=== PATIENT | female | born 1955 | race Caucasian/White ===

== ENCOUNTER 2023-08-03 04:01 | Emergency (ER) | payer MEDICARE, OTHER, SELFPAY ==
[2023-08-03] VITALS (33 sets, daily range): BP systolic 95–146; BP diastolic 50–93; PULSE 86–114; RESP 14–35; TEMP 36.8; O2SAT 96–99
--- NOTE | ~2023-08-03 | XR_ITS ---
EXAMINATION: XR chest 1V portable DATE: 08/03/2023 05:04 INDICATION: Cough. TECHNIQUE: A single frontal view of the chest was obtained. COMPARISON: Chest single view 05/16/2016, thoracic spine MRI 02/29/2016 FINDINGS: There is a diffuse interstitial pattern in the lungs, consistent mild pulmonary edema. No p leural effusion or pneumothorax. Cardiomegaly is noted. There is a large hiatal hernia. IMPRESSION: 1. Mild pulmonary edema. 2. Cardiomegaly. 3. Large hiatal hernia. Reviewed, dictated and finalized at location E.
--- NOTE | ~2023-08-03 | CT_ITS ---
EXAMINATION: CT brain wo con DATE: 08/03/2023 05:05 INDICATION: Altered mental status. TECHNIQUE: Computed tomography (CT) of the head was performed without intravenous contrast. The mA wa s adjusted according to patient size. Iterative reconstruction technique was employed. The dose-lengt h product was 681.00 mGy-cm. COMPARISON: Head CT 03/14/2018 FINDINGS: There are scattered areas of low attenuation in the cerebral white matter. There is no intr acranial hemorrhage, acute infarction, or abnormal intracranial mass lesion. The ventricles are gato l in size. There are likely changes of ocular lens replacement surgeries. There is mild mucosal thick ening in the paranasal sinuses. The mastoid air cells are normal. IMPRESSION: 1. Worsened extensive nonspecific cerebral white matter disease, which likely represents chronic smal l vessel ischemic disease. Reviewed, dictated and finalized at location E. IMPRESSION: 1. Worsened extensive nonspecific cerebral white matter disease, which likely r epresents chronic small vessel ischemic disease.
--- NOTE | 2023-08-03 04:28 | ED.AMS ---
HPI - Altered Mental Status General Chief Complaint: Neuro Symptoms/Deficit <Constantin Nina DO - Last Filed: 08/03/23 07:46> Stated Complaint: confusion, <Constantin Nina DO - Last Filed: 08/03/23 07:46> Time Seen by Provider: 08/03/23 04:13 <Constantin Nina DO - Last Filed: 08/03/23 07:46> Source: patient and family () <Constantin Nina DO - Last Filed: 08/03/23 07:46> Limitations: no limitations <Constantin Nina DO - Last Filed: 08/03/23 07:46> History of Present Illness HPI narrative: Patient is a 67-year-old female present to the emergency department accompanied by her for confusion. notes that they went to bed at approximately 9 AM patient seemed to be acting well at that time however when they woke up around 3 AM patient appeared to be slightly confused. notes that the patient has a history of this in the past and she has been diagnosed with UTIs when that was going on. denies any recent injuries or recent illness. Patient has had a slight cough recently. Denies any fevers. Patient is chronically wheelchair dependent, has a history of MS, unsure as to what medications the patient takes but denies any recent changes to medications. Patient has chronic contractions of the bilateral lower extremities and this is unchanged and she also has chronic decree sensation of the right lower extremity in addition she has chronic slight weakness of the bilateral upper extremities that is unchanged per the patient. Patient denies any vision changes, sore throat, nasal congestion, chest pain, shortness of breath, abdominal pain, vomiting, diarrhea, melena, hematochezia, dysuria, hematuria, urinary frequency, urinary urgency, rash. In regard to appearing slightly confused notes that she seems more drowsy. Patient denies any dysphagia or dysphonia or dizziness. <DO Victorino Hughes Last Filed: 08/03/23 07:46> Related Data Home Medications: Home Medications Medication Instructions Recorded Confirmed dalfampridine 10 mg 10 mg PO Q12H PRN 07/05/21 09/28/22 tablet,extended release,12 hr (Ampyra) <Constantin Nina DO - Last Filed: 08/03/23 07:46> Allergies/Adverse Reactions: Allergies Allergy/AdvReac Type Severity Reaction Status Date / Time No Known Allergies Allergy Verified 07/05/23 13:35 <Constantin Nina DO - Last Filed: 08/03/23 07:46> Review of Systems Review of Systems: A 10 system review of systems was completed on the patient and is negative except for what is stated in the HPI. Nursing and ancillary documentation was reviewed. <Constantin Nina, - Last Filed: 08/03/23 07:46> PMFSH Past Medical History Medical History: Medical History History of vaginal delivery Multiple sclerosis Osteoporosis Overactive bladder <Constantin Nina DO - Last Filed: 08/03/23 07:46> Surgical History Surgical History: Surgical History History of appendectomy S/P LASIK surgery (~2013) <Constantin Nina DO - Last Filed: 08/03/23 07:46> Family History Family History: Family History Father Acute myocardial infarction Other Hypertension <Constantin Nina DO - Last Filed: 08/03/23 07:46> Social History Social History: Social History Smoking status: Never smoker Alcohol intake: never Substance use: never Substance use type: does not use Lack of Transportation: No Lack of Food: Never True Current Housing: I Have Housing Concerned About Future Housing: No Difficulty Paying Gas/Electric Bills: No Difficulty Paying for Meds: No Currently Unemployed: No Education: High School Diploma/GED Difficulty w/ Childcare or Family Care: No Living arran
[2023-08-03] MEDS: SODIUM CHLORIDE 0.9% IV 1,000 ML 999 ML IV CONT (04:41)
[2023-08-03 04:52] LABS: Basophils Percent Auto 0.2 % (0.2-1.2); Eosinophils Percent Auto 0.1 % (0-4.4); Hematocrit 41.7 % (37.0-47.0); Immature Granulocyte Absolute 0.06 K/mm3 (0.00-0.031); Immature Granulocyte Percent A 0.5 % (0-0.5); Lymphocytes Absolute Auto 2.48 K/mm3 (0.9-3.2); Lymphocytes Percent Auto 20.3 % (18.3-44.2); Mean Corpuscular HGB Conc 31.2 g/dl (32-36); Mean Corpuscular Hemoglobin 28.6 pg (26-34); Mean Corpuscular Volume 91.9 fl (80-100); Monocytes Percent Auto 8.5 % (2.6-8.5); Neutrophils Absolute Auto 8.6 K/mm3 (1.3-6.7); Neutrophils Percent Auto 70.4 % (45.5-73.1); Platelet Count Result 322 k/mm3 (150-375); Red Blood Count 4.54 M/mm3 (4.2-5.4); White Blood Count 12.2 K/mm3 (4.5-10.0)
[2023-08-03 05:04] LABS: Acetaminophen < 10 ug/mL (10-30); Ammonia < 9 umol/L (9-30); Lactic Acid Reflex 1.1 mmol/L (0.7-2.0)
[2023-08-03 05:18] LABS: Salicylate < 1.0 mg/dL (2-20)
[2023-08-03 05:22] LABS: Alanine Aminotransferase 28 U/L (6-35); Albumin Level 3.8 g/dL (3.5-5.1); Alkaline Phosphatase 72 U/L (38-126); Aspartate Amino Transferase 44 U/L (14-36); Bilirubin,Total 1.1 mg/dL (0.2-1.3); Calcium 9.7 mg/dL (8.4-10.2); Carbon Dioxide 26 mmol/L (22-30); Glucose 107 mg/dL (65-110); Magnesium 1.7 mg/dL (1.6-2.3); Potassium 3.9 mmol/L (3.4-5.0); Sodium 136 mmol/L (137-145); Troponin I 0.731 ng/mL (0.000-0.034)
--- NOTE | 2023-08-03 05:23 | ECG_ITS ---
Measurements Intervals [place] Rate: 94 P: 3 RI: 133 QRS: 24 QRSD: 86 T: 51 QT: 365 QTc: 458 Interpretive Statements POOR DATA QUALITY SINUS RHYTHM NONSPECIFIC T-WAVE ABNORMALITY ABNORMAL ECG NO PREVIOUS ECG AVAILABLE FOR COMPARISON Electronically Signed On 08-03-2023 7:38:12 CDT by Nino Feldman M.D.
[2023-08-03 05:29] LABS: Influenza A QL RT-PCR Negative (Negative); Influenza B QL RT-PCR Negative (Negative); SARS-CoV-2 RNA PCR Negative (Negative)
[2023-08-03 05:31] LABS: Anion Gap 9 mmol/L (8-16); Blood Urea Nitrogen 14 mg/dL (7-17); Chloride 101 mmol/L (98-107); Estimated CRCL calculation 67 ml/min; Estimated Glomerular Filt Rate > 60
[2023-08-03] MEDS: ASPIRIN 325 MG TABLET PO (05:50)
[2023-08-03 05:55] LABS: Appearance Urine Turbid (Clear); Bacteria Urine 4+ /hpf; Bilirubin Urine Negative (Negative); Blood Urine 2+ (Negative); Color Urine Yellow (Yellow); Glucose Urine UA Negative (Negative); Ketones Urine 1+ mg/dL (Negative); Leukocyte Esterase Ur 3+ LEU/UL (Negative); Need Manual Microscopic Reviewed; Nitrate Urine Negative (Negative); Protein Urine 2+ mg/dL (Negative); RBC Urine 21-50 /hpf (0-2); Specific Grav Ur 1.017 (1.001-1.035); Squamous Epithelial Cell Urine None seen /hpf (Few); WBC Urine >100 /hpf; pH Urine 7.5 (5.0-9.0)
[2023-08-03 06:23] LABS: Add Urine Microscopic? YES
[2023-08-03 06:36] LABS: NT Pro B Type Natriuretic Pept 5900 pg/mL (19.9-100)
[2023-08-03 08:25] LABS: Troponin I 0.569 ng/mL (0.000-0.034)
== END 2023-08-03 09:09 | disposition home or self-care (01) ==
PROVIDERS: Student in an Organized Health Care Education/Training Program; Emergency Provider Preventive Medicine Aerospace Medicine; PCP Physician Assistant
DX: N39.0 Urinary tract infection, site not specified (principal); R79.89 Other specified abnormal findings of blood chemistry; J81.0 Acute pulmonary edema; Z20.822 Contact with and (suspected) exposure to COVID-19; Z79.899 Other long term (current) drug therapy
CPT/HCPCS: 36415; 70450; 71045; 80053; 80307; 81001; 82140; 83605; 83735; 83880; 84443; 84484; 85025; 87086; 87088; 87636; 93005; 96361; 96365; 99284; A9270; J0696; J7030

== ENCOUNTER 2024-06-18 11:55 | Outpatient (CLI) | payer MEDICARE, OTHER, SELFPAY ==
--- NOTE | ~2024-06-18 | MR_ITS ---
EXAMINATION: MR thoracic spine wo/w con DATE: 06/18/2024 14:17 INDICATION: Multiple sclerosis. TECHNIQUE: Magnetic resonance imaging (MRI) of the thoracic spine was performed without and with 12 m L MultiHance intravenous contrast. COMPARISON: None FINDINGS: There is 6 degrees dextrocurvature of thoracic spine. There is kyphosis of thoracic spine. There is mild chronic height loss of T3, T4, T6, T7, T8, and T11 vertebral bodies. There is a chronic burst fracture of T12 with 4/5 loss of height and retropulsion of bone 2 mm into central spinal moni l. At T10-T11, the disc is bulging with mild central canal stenosis. At T11-T12, there is a central e xtrusion with mild central canal stenosis. At T12-L1, the disc is bulging with mild central canal pancho nosis. There is multilevel mild facet joint osteoarthritis. There is mild left neural foraminal steno sis at T11-T12 and mild bilateral neural foraminal stenosis at T12-L1. There are multiple areas of il l-defined increased T2-weighted signal intensity in the thoracic spinal cord. No abnormal contrast en hancement. IMPRESSION: 1. Stable thoracic spinal cord lesions, consistent with multiple sclerosis. 2. Mild thoracic spondylosis. Reviewed, dictated and finalized at location A.
--- NOTE | ~2024-06-18 | MR_ITS ---
EXAMINATION: MR brain/brain stem wo/w con DATE: 06/18/2024 14:17 INDICATION: Multiple sclerosis. TECHNIQUE: Magnetic resonance imaging (MRI) of the brain and brainstem was performed without and with 12 mL MultiHance intravenous contrast. COMPARISON: Brain MRI 02/28/2016 FINDINGS: There is no intracranial hemorrhage, acute infarction, or abnormal intracranial mass lesion . There is an old lacunar infarct in the left basal ganglia. There is extensive increased T2-weighted signal intensity in the cerebral white matter with a confluent periventricular predominance. There i s also involvement of the juxtacortical regions and cerebellar white matter. No abnormal contrast enh ancement. The ventricles are normal in size. There are likely changes of ocular lens replacement surg eries. The paranasal sinuses are clear. The mastoid air cells are normal. IMPRESSION: 1. Old lacunar infarct in the left basal ganglia. 2. Extensive cerebral and cerebellar white matter disease, unchanged from 02/28/2016, likely a combina tion of multiple sclerosis and chronic small vessel ischemic disease. Reviewed, dictated and finalized at location A. IMPRESSION: 1. Old lacunar infarct in the left basal ganglia. 2. Extensive cerebral and cerebellar white matter disease, unchanged from 2015, likely a combination of multiple sclerosis and chronic small vessel ische joe disease.
--- NOTE | ~2024-06-18 | MR_ITS ---
EXAMINATION: MR cervical spine wo/w con DATE: 06/18/2024 14:17 INDICATION: Multiple sclerosis. TECHNIQUE: Magnetic resonance imaging (MRI) of the cervical spine was performed without and with 12 m L MultiHance intravenous contrast. COMPARISON: Cervical spine MRI 02/29/2016 FINDINGS: There is dextroscoliosis of thoracic spine. In the cervical spine, vertebral body heights a re normal. There is mildly decreased disc height at C5-C6. There is ill-defined patchy increased T2-w eighted signal intensity in the cervical spinal cord. No abnormal contrast enhancement. The following disc levels are specifically discussed: C2-C3: The disc does not extend beyond the endplate margin. There is no uncovertebral joint osteoarth ritis. There is severe left facet joint osteoarthritis. There is ankylosis of right facet joint with moderate hypertrophy. There is no neural foraminal stenosis. There is no central canal stenosis. C3-C4: There is a central extrusion. There is mild left uncovertebral joint osteoarthritis. There is severe bilateral facet joint osteoarthritis. There is mild left neural foraminal stenosis. There is m ild central canal stenosis. C4-C5: There is a central protrusion. There is no uncovertebral joint osteoarthritis. There is severe bilateral facet joint osteoarthritis. There is mild bilateral neural foraminal stenosis. There is mi ld central canal stenosis. C5-C6: There is a central extrusion. There is mild bilateral uncovertebral joint osteoarthritis. Ther e is mild bilateral facet joint osteoarthritis. There is mild right neural foraminal stenosis. There is mild central canal stenosis. C6-C7: There is a central protrusion. There is mild bilateral uncovertebral joint osteoarthritis. The re is no facet joint osteoarthritis. There is no neural foraminal stenosis. There is mild central can al stenosis. C7-T1: The disc does not extend beyond the endplate margin. There is no uncovertebral joint osteoarth ritis. There is mild bilateral facet joint osteoarthritis. There is no neural foraminal stenosis. The re is no central canal stenosis. IMPRESSION: 1. Stable widespread spinal cord lesions, consistent with multiple sclerosis. 2. Mild cervical spondylosis. Reviewed, dictated and finalized at location A.
== END 2024-06-18 11:56 | disposition home or self-care (01) ==
PROVIDERS: Visit Provider Psychiatry & Neurology Neurology
DX: G35 Multiple sclerosis (principal); M47.894 Other spondylosis, thoracic region; M47.892 Other spondylosis, cervical region; R90.82 White matter disease, unspecified
CPT/HCPCS: 70553; 72156; 72157; A9577

== ENCOUNTER 2025-02-23 15:35 | Emergency (ER) | payer MEDICARE, OTHER, SELFPAY ==
--- NOTE | ~2025-02-23 | CT_ITS ---
EXAMINATION: CT brain wo con DATE: 02/23/2025 16:50 INDICATION: AMS . TECHNIQUE: Computed tomography (CT) of the head was performed without intravenous contrast. The mA wa s adjusted according to patient size. Iterative reconstruction technique was employed. The dose-lengt h product was 756.67 mGy-cm. COMPARISON: 08/03/2023; MR brain 06/18/2024. FINDINGS: No acute intracranial hemorrhage or extra-axial fluid collection. No hydrocephalus, mass, or herniation. No acute ischemic infarct. Unremarkable dural venous sinus attenuation. No acute osseous abnormality. Small retention cyst/polyp in the left maxillary sinus, the remaining aerated spaces are clear. Moderate atrophy and severe chronic white matter change. Atherosclerotic intracranial calcification. Bilateral lens replacements. IMPRESSION: No acute intracranial process. Reviewed, dictated and finalized at location K.
--- OUTSIDE RECORDS SUMMARY | 2025-02-23 15:41 | XMS_ITS | Clinical Summary ---
Author Organization [facility] [address] Address [address] [place] [address] Care Team Providers Care Take Up Supervisor Name Role Phone Unknown, Notinfile Primary Care Provider Unavail able Allergies No known active allergies Medications baclofen (LIORESAL) 10 mg tablet Take 1 tablet (10 mg total) by mouth 12/25/2024 Active FLUoxetine (PROzac) 20 mg capsule Take 1 capsule (20 mg total) by mouth daily 10/23/2024 Active oxyBUTYnin XL (DITROPAN XL) 15 mg 24 hr tablet Take 1 tablet (15 mg total) by mouth daily 11/26/2024 Active Active Problems Problem Noted Date Diagnosed Date Hypertension 07/10/2012 Spasticity 07/10/2012 Encounters Date Type Department Care Team Description 02/23/2025 2:45 PM CDT Office Visit [facility] at [address] [phone] Anay Mistry PA Confusion (Primary Dx) 01/01/2025 Results Follow-Up [facility] [address] [phone] Kelle Spring NP Urine culture Urine, clean voided 12/29/2024 9:31 AM CDT - 12/29/2024 11:59 PM CDT Hospital Encounter [address] [address] Confusion; Cloudy urine Discharge Disposition: Discharge to home or self care 12/29/2024 8:45 AM CDT Office Visit [facility] at [address] [phone] Lina Thompson NP Confusion (Primary Dx); Cloudy urine from Last 3 Months Social History Tobacco Use Types Packs/Day Years Used Date Smoking Tobacco: Never Comments Unknown Sex and Gender Information Value Date Recorded Sex Assigned at Not on file 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 Gender Identity Not on file Sexual Orientation Not on file Obstetrics History Last Filed Vital Signs Vital Sign Reading Time Taken Comments Blood Pressure 140/70 02/23/2025 2:49 PM CDT Pulse 82 02/23/2025 2:49 PM CDT Temperature 36.7 C (98 F) 02/23/2025 2:49 PM CDT Respiratory Rate 20 02/23/2025 2:49 PM CDT Oxygen Saturation 98% 02/23/2025 2:49 PM CDT Inhaled Oxygen Concentration - - Weight 54.4 kg (120 lb) 12/29/2024 8:46 AM CDT Height 162.6 cm (5' 4 ) 12/29/2024 8:46 AM CDT Body Mass Index 20.6 12/29/2024 8:46 AM CDT Plan of Treatment Health Maintenance Due Date Last Done Comments Breast Cancer Screening-Mammogram 1955 Colon Cancer Screening-Colonoscopy 1955 Depression Screening 1955 Fall Risk Assessment 1955 Hepatitis C Screening 1955 Osteoporosis Screening-Bone Density Scan 1955 DTaP/Tdap/Td Vaccine (1 - Tdap) 1966 Hepatitis B Screening 1973 Pneumococcal vaccine 65+ (1 of 1 - PCV) 2005 Zoster Vaccine (1 of 2) 2005 Well Visit 65+ 2020 Influenza Vaccine (Season Ended) 2025 Procedures Procedure Name Priority Date/Time Associated Diagnosis Comments URINE CULTURE Routine 12/29/2024 9:31 AM CDT Confusion Cloudy urine POCT URINALYSIS DIPSTICK Routine 12/29/2024 9:29 AM CDT Confusion Cloudy urine from Last 3 Months Results * (ABNORMAL) Urine culture Urine, clean voided (12/29/2024 9:31 AM CDT) Report Final Report: Greater than or equal to 100,000 colonies/mL of Escherichia coli Plus growth of clinically insignificant bacterial shaw. (.) Comment:Testing performed by : [facility], [address] [place]., [address] Organism ESCHERICHIA COLI [facility] Organism PLUS GROWTH OF CLINICALLY INSIGNIFICANT SHAW. [facility] Urine, clean voided 12/29/2024 9:31 AM CDT 12/29/2024 7:54 PM CDT Narrative [facility] - 01/01/2025 1:59 PM CDT Testing performed by [facility] ([phone]) Organism Antibiotic Method Susceptibility Escherichia coli Ampicillin INTERPRETATION Resistant Escherichia coli Cefazolin INTERPRETATION Susceptible Escherichia coli Nitrofurantoin INTERPRETATION Susceptible Escherichia coli Gentamicin INTERPRETATION Susceptible Escherichia coli Trimethoprim with Sulfamethoxazole IN TERPRETATION Resistant Escherichia coli Meropenem INTERPRETATION Susceptible Escherichia coli Cefepime INTERPRETATION Susceptible Escherichia coli Ciprofloxacin INTERPRETATION Susceptible Escherichia coli Ceftazidime INTERPRETATION Susceptible Escherichia coli Ceftriaxone INTERPRETATION Susceptible Escherichia coli Piperacillin/Tazobactam INTERPRETATIO N Susceptible Escherichia coli Cephalexin INTERPRETATION Susceptible Escherichia coli Cefuroxime-axetil INTERPRETATION Susceptible Escherichia coli Cefdinir INTERPRETATION Susceptible Lina Thompson NP LAB MICROBIOLOGY - GENERAL ORDERABLES Final Result [facility] [id number] [place] [address] * (ABNORMAL) POCT urinalysis dipstick (12/29/2024 9:29 AM CDT) Color, Urine, POC Yellow Clarity, ur, POC Cloudy(A) Clear Glucose, ur, POC Negative Negative MG/DL Bilirubin, ur, POC Small Negative, Small, Moderate, Large Ketones, ur, POC Negative Negative Specific [place], POC 1.015 1.003 - 1.030 Blood, ur, POC Moderate(A) Negative pH, ur, POC 8.0 5.0 - 8.0 Protein, ur, POC 30.(A) Negative Urobilinogen, urine, POC 0.2 0.2 - 1.0 mg/dL Nitrite, ur, POC Positive(A) Negative Leukocytes, ur, POC Moderate(A) Negative Lot Number [id number] Urine 12/29/2024 9:29 AM CDT Lina Thompson NP POINT OF CARE TEST ORDERAB LES Final Result from Last 3 Months Insurance [facility] MEDICARE MEDICARE Care Teams Take Up Supervisor Relationship Specialty Start Date End Date Unknown, Notinfile PCP - General 12/29/24
--- OUTSIDE RECORDS SUMMARY | 2025-02-23 15:41 | XMS_ITS | Referral Summary ---
Author Organization [facility] [place] [address] Address [address] [place] [address] Care Team Providers Care Cruise Guide Name Role Phone Unknown, Notinfile Primary Care Provider Unavail able Encounters Date Type Department Care Team Description 02/23/2025 2:45 PM CDT Office Visit [facility] at [address] [phone] Anay Mistry PA Confusion (Primary Dx) 01/01/2025 Results Follow-Up [facility] at [address] [phone] Kelle Spring NP Urine culture Urine, clean voided 12/29/2024 9:31 AM CDT - 12/29/2024 11:59 PM CDT Hospital Encounter [address] [address] Confusion; Cloudy urine Discharge Disposition: Discharge to home or self care 12/29/2024 8:45 AM CDT Office Visit [facility] at [address] [phone] Lina Thompson NP Confusion (Primary Dx); Cloudy urine from Last 3 Months Allergies No known active allergies Medications baclofen [...] Date Diagnosed Date Hypertension 07/10/2012 Spasticity 07/10/2012 Social History Tobacco Use Types Packs/Day Years Used Date Smoking Tobacco: Never Comments Unknown Sex and Gender Information Value Date Recorded Sex Assigned at Not on file 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 (.) Comment:Testing performed by : [facility], [address] [facility], [place]., [address] Organism ESCHERICHIA COLI [facility] Organism PLUS GROWTH OF CLINICALLY INSIGNIFICANT SHAW. [facility] Urine, clean voided 12/29/2024 9:31 AM CDT 12/29/2024 7:54 PM CDT Narrative [facility] - 01/01/2025 1:59 PM CDT Testing performed by [facility] ([phone]) Organism Antibiotic Method Susceptibility Escherichia coli Ampicillin [...] MICROBIOLOGY - GENERAL ORDERABLES Final Result [facility] [id number] [address] Department [place] [address] * (ABNORMAL) POCT urinalysis dipstick (12/29/2024 9:29 AM CDT) Color, Urine, POC Yellow Clarity, ur, POC Cloudy(A) Clear Glucose, ur, POC Negative Negative MG/DL Bilirubin, ur, POC Small Negative, Small, Moderate, Large Ketones, ur, POC Negative Negative Specific [place], POC 1.015 1.003 - 1.030 Blood, ur, POC Moderate(A) Negative pH, ur, POC 8.0 5.0 - 8.0 Protein, ur, POC 30.(A) Negative Urobilinogen, urine, POC 0.2 0.2 - 1.0 mg/dL Nitrite, ur, POC Positive(A) Negative Leukocytes, ur, POC Moderate(A) Negative Lot Number [id number] Urine 12/29/2024 9:29 AM CDT Lina Thompson NP POINT OF CARE TEST ORDERAB LES Final Result from Last 3 Months Insurance [facility] [employer] [place] MEDICARE Care Teams Cruise Guide Relationship Specialty Start Date End Date Unknown, Notinfile PCP - General 12/29/24
--- OUTSIDE RECORDS SUMMARY | 2025-02-23 15:41 | XMS_ITS | Encounter Summary ---
Author Organization [facility] Address [address] [place] [id number] Care Team Providers Care Fitting Room Inspector Name Role Phone Unknown, Notinfile Primary Care Provider Unavail able Reason for Visit * Reason Comments Urinary Symptom Frequency, Confusion Encounter Details Date Type Department Care Team (Late st Contact Info) Description 02/23/2025 2:45 PM CDT Office Visit [facility] at [address] [phone] Anay Mistry PA [facility] [address] [place] [address] Confusion (Primary Dx) Social History Tobacco Use Types Packs/Day Years Used Date Smoking Tobacco: Never Comments Unknown Sex and Gender Information Value Date Recorded Sex Assigned at Not on file 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 Gender Identity Not on file Sexual Orientation Not on file documented as of this encounter Last Filed Vital Signs Vital Sign Reading Time Taken Comments Blood Pressure 140/70 02/23/2025 2:49 PM CDT Pulse 82 02/23/2025 2:49 PM CDT Temperature 36.7 C (98 F) 02/23/2025 2:49 PM CDT Respiratory Rate 20 02/23/2025 2:49 PM CDT Oxygen Saturation 98% 02/23/2025 2:49 PM CDT Inhaled Oxygen Concentration - - Weight - - Height - - Body Mass Index - - documented in this encounter Plan of Treatment Not on file documented as of this encounter Visit Diagnoses Diagnosis Confusion- Primary Unspecified psychosis documented in this encounter Care Teams Fitting Room Inspector Relationship Specialty Start Date End Date Unknown, Cheo PCP - General 12/29/24 documented as of this encounter
[2025-02-23 15:55] VITALS: BP 141/73; PULSE 77; RESP 16; TEMP 36.3; O2SAT 98
--- NOTE | 2025-02-23 16:29 | ED_ITS ---
HPI - Female Genitourinary General Chief complaint: Urogenital-Female <Mary Ann De Souza PA-C - Last Filed: 02/25/25 18:01> Stated complaint: UTI symptoms-Hx MS <ANTONIO Galvan Last Filed: 02/25/25 18:01> Time Seen by Provider: 02/23/25 16:29 <ANTONIO Galvan Last Filed: 02/25/25 18:01> Focused HPI: This is a 69 year old female that presents to the ER for confusion, difficulty urinating. Ongoing since this morning. Reports significant history of UTIs. GENERAL: Well-appearing, well-nourished, and in no acute distress. HEAD: Normocephalic, atraumatic. CHEST: Clear to auscultation. No respiratory distress. HEART: Regular rate and rhythm. NEURO: Alert and oriented x3. Patient screened in triage and initial orders placed. Additional care and disposition to be based upon diagnostic testing and treatment. <Mary Ann De Souza PA-C - Last Filed: 02/25/25 18:01> Focused HPI: This is a 69 year old female that presents to the ER for confusion, difficulty urinating. Ongoing since this morning. Reports significant history of UTIs. GENERAL: Well-appearing, well-nourished, and in no acute distress. HEAD: Normocephalic, atraumatic. CHEST: Clear to auscultation. No respiratory distress. HEART: Regular rate and rhythm. NEURO: Alert and oriented x3. Patient screened in triage and initial orders placed. Additional care and disposition to be based upon diagnostic testing and treatment. <Angely Jackson PA-C - Last Filed: 02/23/25 21:36> Source: patient and family <ANTONIO Gross Last Filed: 02/23/25 21:36> Mode of arrival: ambulatory <ANTONIO Gross Last Filed: 02/23/25 21:36> Limitations: no limitations <ANTONIO Gross Last Filed: 02/23/25 21:36> History of Present Illness HPI Narrative: Agree with above HPI. Patient has history of MS. at bedside reports patient was acting slightly confused this morning, had difficulty using the TV remote, was trying to call him while he was still in the room, was opening up several different candy bars at the same time. She has history of frequent UTIs and states it often presents some early. Patient is incontinent, wears depends. She denies feeling as though she cannot empty her bladder. She denies abdominal or back pain, nausea, vomiting, fevers, hematuria. Sees Dr. Del Cid. <Angely Jackson PA-C - Last Filed: 02/23/25 21:36> Related Data Allergies/Adverse reactions: Allergies Allergy/AdvReac Type Severity Reaction Status Date / Time No Known Allergies Allergy Verified 02/23/25 15:37 <Mary Ann De Souza PA-C - Last Filed: 02/25/25 18:01> Review of Systems 2 Review of Systems: All systems reviewed & are unremarkable except as noted in HPI. <Angely Jackson PA-C - Last Filed: 02/23/25 21:36> All systems reviewed & are unremarkable except as noted in HPI and below < Angely Jackson PA-C - Last Filed: 02/23/25 21:36> [facility] Past Medical History Medical History: Medical History Carotid bruit present History of vaginal delivery Overactive bladder Osteoporosis Multiple sclerosis <Mary Ann De Souza PA-C - Last Filed: 02/25/25 18:01> Surgical History Surgical History: Surgical History S/P LASIK surgery (~2013) History of appendectomy <Mary Ann De Souza PA-C - Last Filed: 02/25/25 18:01> Family History Family History: Family History Father Acute myocardial infarction Other Hypertension <Mary Ann De Souza PA-C - Last Filed: 02/25/25 18:01> Social History Social History: Social History Smoking status: Never smoker Alcohol intake: never Substance use: never Substance use type: does not use Lack of Transportation: No Lack of Food: Never True Current Housing: I Have Housing Concerned About Future Housing: No Difficulty Paying Gas/Electric Bills: No Difficulty Paying for Meds: No Currently Unemployed: No Education: High School Diploma/GED Difficulty w/ Childcare or Family Care: No Living arrangements: with family <Mary Ann De Souza PA-C - Last Filed: 02/25/25 18:01> Exam 2 Narrative: GENERAL: Chronically ill-appearing, thin, pleasant, non-toxic, in no acute distress. HEAD: Normocephalic, atraumatic. RESPIRATORY: Airway patent, respirations nonlabored. Clear to auscultation bilaterally, no rales, rhonchi, wheezing. CARDIOVASCULAR: Regular rate and rhythm without murmurs, rubs, or gallops. ABDOMINAL: Soft, nontender, nondistended. Normoactive BS. MUSCULOSKELETAL: No gross deformities. Kyphosis, contractures. Atrophy of lower extremities bilaterally. SKIN: Warm, dry, normal color. NEURO: A&O X3. Speech clear. Cranial nerves II-XII grossly intact. No ataxic movements. PSYCHIATRIC: Appropriate mood and affect. Normal interaction. <Angely Jackson PA-C - Last Filed: 02/23/25 21:36> Course Vital Signs Vital signs: Vital Signs Temperature 97.4 F L 02/23/25 15:55 Pulse Rate 77 02/23/25 15:55 Respiratory Rate 16 02/23/25 15:55 Blood Pressure 141/73 H 02/23/25 15:55 Pulse Oximetry 98 02/23/25 15:55 Temperature 97.4 F L 02/23/25 15:55 Pulse Rate 73 02/23/25 21:00 Respiratory Rate 16 02/23/25 21:00 Blood Pressure 136/82 02/23/25 21:00 Pulse Oximetry 99 02/23/25 21:00 <Mary Ann De Souza PA-C - Last Filed: 02/25/25 18:01> Vital Signs Temperature 97.4 F L 02/23/25 15:55 Pulse Rate 77 02/23/25 15:55 Respiratory Rate 16 02/23/25 15:55 Blood Pressure 141/73 H 02/23/25 15:55 Pulse Oximetry 98 02/23/25 15:55 Temperature 97.4 F L 02/23/25 15:55 Pulse Rate 73 02/23/25 21:00 Respiratory Rate 16 02/23/25 21:00 Blood Pressure 136/82 02/23/25 21:00 Pulse Oximetry 99 02/23/25 21:00 <Angely Jackson PA-C - Last Filed: 02/23/25 21:36> MDM - Female Genitourinary MDM Narrative Medical decision making narrative: Patient presented to ED with concern for UTI, history of MS, history of frequent UTIs. Has been reported slight confusion this morning, but otherwise feels patient has been at her baseline currently. Vital signs are stable. Patient is afebrile. Laboratory studies without leukocytosis or anemia. Stable electrolytes. Stable kidney function. Normal LFTs and lipase. Urine does appear infectious, positive nitrate, 3+ leuk esterase, greater than 100 RBC/WBC, 4+ urine bacteria. Sent for culture. No previous positive cultures to view here. Given dose of Rocephin in the ED. Patient denies history of drug- resistant UTIs that she is aware of, has always tolerated oral antibiotics in the past. CT brain was obtained from triage due to acute confusion, this was negative. Discussed lab and imaging findings with patient and family. She denies any abdominal or flank/back pain, no history of kidney stones. Discussed obtaining CT imaging to rule out obstructive process or other etiology for hematuria. Patient and family politely declined. They wished to be discharged at this time. Shared decision-making. They report this is very similar to her previous UTIs and feel very comfortable going home. Advised to have close follow-up with PCP for further evaluation. Given very strict return precautions. They agreed with plan. Discharged in stable condition. <Angely Jackson PA-C - Last Filed: 02/23/25 21:36> Medical Records Attestation: I reviewed the patient's medical records. <Angely Jackson PA-C - Last Filed: 02/23/25 21:36> Lab Data Attestation: I reviewed the patient's lab results. <Angely Jackson PA-C - Last Filed: 02/23/25 21:36> Result diagrams: 02/23/25 17:08 02/23/25 17:08 <Mary Ann De Souza PA-C - Last Filed: 02/25/25 18:01> Labs: Lab Results 02/23/25 02/23/25 Range/Units 17:08 18:13 WBC 9.1 (4.5-10.0) K/mm3 RBC 4.51 (4.2-5.4) M/mm3 Hgb 12.5 (12.0-15.0) g/dL Hct 43.0 (37.0-47.0) % MCV 95.3 (80-100) fl MCH 27.7 (26-34) pg MCHC 29.1 L (32-36) g/dl RDW 13.2 (11.5-14.5) % Plt Count 384 H (150-375) k/mm3 MPV 11.0 H (7.4-10.4) fl Immature Gran % (Auto) 0.2 (0-0.5) % Neut % (Auto) 71.3 (45.5-73.1) % Lymph % (Auto) 22.1 (18.3-44.2) % [place] % (Auto) 5.0 (2.6-8.5) % Eos % (Auto) 1.1 (0-4.4) % Baso % (Auto) 0.3 (0.2-1.2) % Lymph # (Auto) 2.00 (0.9-3.2) K/mm3 [place] # (Auto) 0.5 (0.1-0.6) K/mm3 Eos # (Auto) 0.1 (0-0.3) K/mm3 Baso # (Auto) 0.0 (0.0-0.1) K/mm3 Abs Immat Gran (auto) 0.02 (0.00-0.031) K/mm3 Absolute Neuts (auto) 6.5 (1.3-6.7) K/mm3 Absolute Nucleated RBC 0.000 (0.0-0.012) K/mm3 Band Neutrophils % 0 (0-6) % Nucleated RBC % 0.0 (0.0-0.2) % Platelet Estimate Slightly increased (Adequate) Hypochromasia 1+ Schistocytes None seen Sodium 140 (137-145) mmol/L Potassium 4.1 (3.4-5.0) mmol/L Chloride 105 (98-107) mmol/L Carbon Dioxide 32 H (22-30) mmol/L Anion Gap 3 L (4-12) mmol/L BUN 14 (7-17) mg/dL Creatinine 0.86 (0.7-1.0) mg/dL Estim Creat Clear Calc 47 ml/min Estimated GFR > 60 (59 - ) Glucose 96 (65-110) mg/dL Calcium 9.1 (8.4-10.2) mg/dL Total Bilirubin 0.4 (0.2-1.3) mg/dL AST 29 (14-36) U/L ALT 15 (6-35) U/L Alkaline Phosphatase 89 (38-126) U/L Total Protein 8.0 (6.3-8.2) g/dL Albumin 4.1 (3.5-5.1) g/dL Lipase 171 (23-300) U/L Urine Color Yellow (Yellow) Urine Appearance Turbid H (Clear) Urine pH 7.5 (5.0-9.0) Ur Specific [place] 1.013 (1.001-1.035) Urine Protein 2+ H (Negative) mg/dL Urine Glucose (UA) Negative (Negative) mg/dL Urine Ketones Negative (Negative) mg/dL Ur Blood (Man) 3+ H (Negative) Urine Nitrate Positive H (Negative) Urine Bilirubin Negative (Negative) Urine Urobilinogen 1.0 (<2.0) mg/dL Add Ur Microanalysis Reviewed Leukocyte Esterase Rfl 3+ H (Negative) SARAH/UL Urine RBC >100 H (0-2) /hpf Urine WBC >100 H (0-3) /hpf Ur Squamous Epith Cells Occasional (Few) /hpf Urine Bacteria 4+ /hpf Urine Casts 3-5 <Mary Ann De Souza PA-C - Last Filed: 02/25/25 18:01> Lab Results 02/23/25 02/23/25 Range/Units 17:08 18:13 WBC 9.1 (4.5-10.0) K/mm3 RBC 4.51 (4.2-5.4) M/mm3 Hgb 12.5 (12.0-15.0) g/dL Hct 43.0 (37.0-47.0) % MCV 95.3 (80-100) fl MCH 27.7 (26-34) pg MCHC 29.1 L (32-36) g/dl RDW 13.2 (11.5-14.5) % Plt Count 384 H (150-375) k/mm3 MPV 11.0 H (7.4-10.4) fl Immature Gran % (Auto) 0.2 (0-0.5) % Neut % (Auto) 71.3 (45.5-73.1) % Lymph % (Auto) 22.1 (18.3-44.2) % [place] % (Auto) 5.0 (2.6-8.5) % Eos % (Auto) 1.1 (0-4.4) % Baso % (Auto) 0.3 (0.2-1.2) % Lymph # (Auto) 2.00 (0.9-3.2) K/mm3 [place] # (Auto) 0.5 (0.1-0.6) K/mm3 Eos # (Auto) 0.1 (0-0.3) K/mm3 Baso # (Auto) 0.0 (0.0-0.1) K/mm3 Abs Immat Gran (auto) 0.02 (0.00-0.031) K/mm3 Absolute Neuts (auto) 6.5 (1.3-6.7) K/mm3 Absolute Nucleated RBC 0.000 (0.0-0.012) K/mm3 Band Neutrophils % 0 (0-6) % Nucleated RBC % 0.0 (0.0-0.2) % Platelet Estimate Slightly increased (Adequate) Hypochromasia 1+ Schistocytes None seen Sodium 140 (137-145) mmol/L Potassium 4.1 (3.4-5.0) mmol/L Chloride 105 (98-107) mmol/L Carbon Dioxide 32 H (22-30) mmol/L Anion Gap 3 L (4-12) mmol/L BUN 14 (7-17) mg/dL Creatinine 0.86 (0.7-1.0) mg/dL Estim Creat Clear Calc 47 ml/min Estimated GFR > 60 (59 - ) Glucose 96 (65-110) mg/dL Calcium 9.1 (8.4-10.2) mg/dL Total Bilirubin 0.4 (0.2-1.3) mg/dL AST 29 (14-36) U/L ALT 15 (6-35) U/L Alkaline Phosphatase 89 (38-126) U/L Total Protein 8.0 (6.3-8.2) g/dL Albumin 4.1 (3.5-5.1) g/dL Lipase 171 (23-300) U/L Urine Color Yellow (Yellow) Urine Appearance Turbid H (Clear) Urine pH 7.5 (5.0-9.0) Ur Specific [place] 1.013 (1.001-1.035) Urine Protein 2+ H (Negative) mg/dL Urine Glucose (UA) Negative (Negative) mg/dL Urine Ketones Negative (Negative) mg/dL Ur Blood (Man) 3+ H (Negative) Urine Nitrate Positive H (Negative) Urine Bilirubin Negative (Negative) Urine Urobilinogen 1.0 (<2.0) mg/dL Add Ur Microanalysis Reviewed Leukocyte Esterase Rfl 3+ H (Negative) SARAH/UL Urine RBC >100 H (0-2) /hpf Urine WBC >100 H (0-3) /hpf Ur Squamous Epith Cells Occasional (Few) /hpf Urine Bacteria 4+ /hpf Urine Casts 3-5 <Angely Jackson PA-C - Last Filed: 02/23/25 21:36> Imaging Data Radiologist's impression: ITS Impressions Head CT 02/23/25 16:52 IMPRESSION: No acute intracranial process. <ANTONIO Galvan Last Filed: 02/25/25 18:01> Critical Care Time Critical Care Time Critical Care Time: No <ANTONIO Galvan Last Filed: 02/25/25 18:01> Discharge Plan Discharge Clinical Impression: Multiple sclerosis Urinary tract infection Qualifiers: Urinary tract infection type: acute cystitis Hematuria presence: without hematuria Qualified Code(s): N30.00 - Acute cystitis without hematuria <ANTONIO Galvan Last Filed: 02/25/25 18:01> Patient Disposition: Home <ANTONIO Galvan Last Filed: 02/25/25 18:01> Condition: Stable <Mary Ann De Souza PA-C - Last Filed: 02/25/25 18:01> Instructions: Antibiotic Form, Urinary Tract Infection in Women (ED) <Mary Ann De Souza PA-C - Last Filed: 02/25/25 18:01> Additional Instructions: Take antibiotics as prescribed. Follow-up closely with your primary care doctor for further evaluation and urine culture results. Return to the ED if you experience worsening or severe confusion, unable to keep down food or drink, fevers, severe back or abdominal pain, unable to urinate, or any other symptoms of concern. <ANTONIO Galvan Last Filed: 02/25/25 18:01> Patient Language: Citizen [place] <Mary Ann De Souza PA-C - Last Filed: 02/25/25 18:01> Prescriptions: New cephalexin 500 mg capsule 500 mg PO Q6H 7 Days Qty: 28 0RF No Action baclofen 10 mg tablet See Rx Instructions .ROUTE .COMPLEX Qty: 210 12RF Dose Instruction: TAKE 1 TABLET BY MOUTH 7 TIMES A DAY Rx Instructions: TAKE 1 TABLET BY MOUTH 7 TIMES A DAY fluoxetine 20 mg capsule See Rx Instructions .ROUTE .COMPLEX Qty: 90 0RF Dose Instruction: TAKE 1 CAPSULE BY MOUTH DAILY Rx Instructions: TAKE 1 CAPSULE BY MOUTH DAILY oxybutynin chloride 15 mg tablet extended release 24hr See Rx Instructions .ROUTE .COMPLEX Qty: 90 5RF Dose Instruction: TAKE 1 TABLET BY MOUTH EVERY DAY Rx Instructions: TAKE 1 TABLET BY MOUTH EVERY DAY <Mary Ann De Souza PA-C - Last Filed: 02/25/25 18:01> Follow-up/Referrals: PHYSICIAN NOT ON STAFF,NONSTAFF [Non-Staff] - <Mary Ann De Souza PA-C - Last Filed: 02/25/25 18:01> Time of Disposition: 20:35 <ANTONIO Galvan Last Filed: 02/25/25 18:01> 20:35 <Angely Jackson PA-C - Last Filed: 02/23/25 21:36>
[2025-02-23 17:14] LABS: Basophils Percent Auto 0.3 % (0.2-1.2); Eosinophils Absolute Auto 0.1 K/mm3 (0-0.3); Eosinophils Percent Auto 1.1 % (0-4.4); Hemoglobin 12.5 g/dL (12.0-15.0); Immature Granulocyte Absolute 0.02 K/mm3 (0.00-0.031); Immature Granulocyte Percent A 0.2 % (0-0.5); Lymphocytes Percent Auto 22.1 % (18.3-44.2); Mean Corpuscular HGB Conc 29.1 g/dl (32-36); Mean Corpuscular Hemoglobin 27.7 pg (26-34); Mean Corpuscular Volume 95.3 fl (80-100); Monocytes Absolute Auto 0.5 K/mm3 (0.1-0.6); Neutrophils Absolute Auto 6.5 K/mm3 (1.3-6.7); Neutrophils Percent Auto 71.3 % (45.5-73.1); Platelet Count Result 384 k/mm3 (150-375); Red Blood Count 4.51 M/mm3 (4.2-5.4); Red Cell Distribution Width 13.2 % (11.5-14.5); White Blood Count 9.1 K/mm3 (4.5-10.0)
[2025-02-23 17:33] LABS: Alanine Aminotransferase 15 U/L (6-35); Albumin Level 4.1 g/dL (3.5-5.1); Alkaline Phosphatase 89 U/L (38-126); Anion Gap 3 mmol/L (4-12); Aspartate Amino Transferase 29 U/L (14-36); Bilirubin,Total 0.4 mg/dL (0.2-1.3); Blood Urea Nitrogen 14 mg/dL (7-17); Calcium 9.1 mg/dL (8.4-10.2); Carbon Dioxide 32 mmol/L (22-30); Chloride 105 mmol/L (98-107); Estimated CRCL calculation 47 ml/min; Estimated Glomerular Filt Rate > 60; Glucose 96 mg/dL (65-110); Lipase 171 U/L (23-300); Potassium 4.1 mmol/L (3.4-5.0); Sodium 140 mmol/L (137-145)
[2025-02-23 17:34] LABS: Platelet Estimate Slightly Increased (Adequate)
[2025-02-23 17:35] LABS: Schistocytes None Seen
[2025-02-23 17:36] LABS: Hypochromasia 1+
[2025-02-23 17:53] LABS: Band Neutrophils Percent 0 % (0-6)
[2025-02-23 18:36] LABS: Add Urine Microscopic? YES; Appearance Urine Turbid (Clear); Bacteria Urine 4+ /hpf; Bilirubin Urine Negative (Negative); Blood Urine 3+ (Negative); Color Urine Yellow (Yellow); Glucose Urine UA Negative (Negative); Ketones Urine Negative (Negative); Leukocyte Esterase Ur 3+ LEU/UL (Negative); Need Manual Microscopic Reviewed; Nitrate Urine Positive (Negative); Protein Urine 2+ mg/dL (Negative); RBC Urine >100 /hpf (0-2); Specific Grav Ur 1.013 (1.001-1.035); Squamous Epithelial Cell Urine Occasional /hpf (Few); WBC Urine >100 /hpf (0-3); pH Urine 7.5 (5.0-9.0)
--- OUTSIDE RECORDS SUMMARY | 2025-02-23 18:44 | XMS_ITS | Referral Summary ---
Author Organization [facility] [place] [address] Address [address] [place] [address] Care Team Providers Care Power Generation Technician Name Role Phone Unknown, Notinfile Primary Care Provider Unavail able Encounters Date Type Department Care Team Description 02/23/2025 2:45 PM CDT Office Visit [facility] at [address] [phone] Anay Mistry PA Confusion (Primary Dx) 01/01/2025 Results Follow-Up [facility] at [address] [phone] Kelle Spring NP Urine culture Urine, clean voided 12/29/2024 9:31 AM CDT - 12/29/2024 11:59 PM CDT Hospital Encounter [address] [address] Confusion; Cloudy urine Discharge Disposition: Discharge to home or self care 12/29/2024 8:45 AM CDT Office Visit [facility] at [address] [phone] Lina Thompson NP Confusion (Primary [...] on file Legal Sex Female 6:39 PM CARDIOLOGY TECH Gender Identity Not on file Sexual Orientation [...] bacterial shaw. (.) Comment:Testing performed by : [facility], [address] [facility], [place]., [address] Organism ESCHERICHIA COLI [facility] Organism PLUS GROWTH OF CLINICALLY INSIGNIFICANT SHAW. [facility] Urine, clean voided 12/29/2024 9:31 AM CDT 12/29/2024 7:54 PM CDT Narrative [facility] - 01/01/2025 1:59 PM CDT Testing performed by [facility] Microbiology Laboratory ([phone]) Organism Antibiotic Method Susceptibility Escherichia coli Ampicillin [...] MICROBIOLOGY - GENERAL ORDERABLES Final Result [facility] [id number] [address] Department [place] [address] * (ABNORMAL) POCT urinalysis dipstick (12/29/2024 9:29 AM CDT) Color, Urine, POC Yellow Clarity, ur, POC Cloudy(A) Clear Glucose, ur, POC Negative Negative MG/DL Bilirubin, ur, POC Small Negative, Small, Moderate, Large Ketones, ur, POC Negative Negative Specific [place], POC 1.015 1.003 - 1.030 Blood, ur, POC Moderate(A) Negative pH, ur, POC 8.0 5.0 - 8.0 Protein, ur, POC 30.(A) Negative Urobilinogen, urine, POC 0.2 0.2 - 1.0 mg/dL Nitrite, ur, POC Positive(A) Negative Leukocytes, ur, POC Moderate(A) Negative Lot Number [id number] Urine 12/29/2024 9:29 AM CDT Lina Thompson NP POINT OF CARE TEST ORDERAB LES Final Result from Last 3 Months Insurance [facility] [employer] MEDICARE MEDICARE Care Teams Power Generation Technician Relationship Specialty Start Date End Date Unknown, Notinfile PCP - General 12/29/24
--- OUTSIDE RECORDS SUMMARY | 2025-02-23 18:44 | XMS_ITS | Encounter Summary ---
Author Organization [facility] Healthcare Address [address] [place] [address] Care Team Providers Care Sales Analytics Manager Name Role Phone Unknown, Notinfile Primary Care Provider Unavail able Reason for Visit * Reason Comments Urinary Symptom Frequency, Confusion Encounter Details Date Type Department Care Team (Late st Contact Info) Description 02/23/2025 2:45 PM CDT Office Visit [facility] Medical [facility] at [address] [phone] Anay Mistry PA [facility] [address] [place] [address] Confusion (Primary Dx) Social History Tobacco Use Types Packs/Day Years Used Date Smoking Tobacco: Never Comments Unknown Sex and Gender Information Value Date Recorded Sex Assigned at Not on file 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
--- OUTSIDE RECORDS SUMMARY | 2025-02-23 18:44 | XMS_ITS | Clinical Summary ---
Author Organization [facility] [place] [address] Address [address] [place] [address] Care Team Providers Care Precipitator Operator Name Role Phone Unknown, Notinfile Primary Care [...] Description 02/23/2025 2:45 PM CDT Office Visit [facility] at [address] [phone] Anay Mistry PA Confusion (Primary Dx) 01/01/2025 Results Follow-Up [facility] at [address] [phone] Kelle Spring NP Urine culture Urine, clean voided 12/29/2024 9:31 AM CDT - 12/29/2024 11:59 PM CDT Hospital Encounter [address] [address] Confusion; Cloudy urine Discharge Disposition: Discharge to home or self care 12/29/2024 8:45 AM CDT Office Visit [facility] at [address] [phone] Lina Thompson NP Confusion (Primary Dx); Cloudy urine from Last 3 Months Social History Tobacco Use Types Packs/Day Years Used Date Smoking Tobacco: Never Comments Unknown Sex and Gender Information Value Date Recorded Sex Assigned at Not on file Legal Sex Female 6:39 PM TELLER Gender Identity Not on file Sexual Orientation [...] bacterial shaw. (.) Comment:Testing performed by : [facility], [address] [place]., [address] Organism ESCHERICHIA COLI [facility] Organism PLUS GROWTH OF CLINICALLY INSIGNIFICANT SHAW. [facility] Urine, clean voided 12/29/2024 9:31 AM CDT 12/29/2024 7:54 PM CDT Narrative [facility] - 01/01/2025 1:59 PM CDT Testing performed by [facility] Microbiology Laboratory ([phone]) Organism Antibiotic Method Susceptibility Escherichia coli Ampicillin [...] MICROBIOLOGY - GENERAL ORDERABLES Final Result [facility] [address] [address] Department [place] [address] * (ABNORMAL) POCT urinalysis dipstick (12/29/2024 9:29 AM CDT) Color, Urine, POC Yellow Clarity, ur, POC Cloudy(A) Clear Glucose, ur, POC Negative Negative MG/DL Bilirubin, ur, POC Small Negative, Small, Moderate, Large Ketones, ur, POC Negative Negative Specific [place], POC 1.015 1.003 - 1.030 Blood, ur, POC Moderate(A) Negative pH, ur, POC 8.0 5.0 - 8.0 Protein, ur, POC 30.(A) Negative Urobilinogen, urine, POC 0.2 0.2 - 1.0 mg/dL Nitrite, ur, POC Positive(A) Negative Leukocytes, ur, POC Moderate(A) Negative Lot Number [id number] Urine 12/29/2024 9:29 AM CDT Lina Thompson NP POINT OF CARE TEST ORDERAB LES Final Result from Last [address] [facility] Member Subscriber Plan / Payer (Ef fective 2020-Present) Name:Cheryl Roberts Relation to Subscriber:Self Name:Cheryl Roberts Payer ID:[id number] Group ID:Not on file Type:[employer] Address: [facility] [address] [place] [address] MEDICARE MEDICARE Care Teams Precipitator Operator Relationship Specialty Start Date End Date Unknown, Notinfile PCP - General 12/29/24
[2025-02-23 21:00] VITALS: BP 136/82; PULSE 73; RESP 16; O2SAT 99
== END 2025-02-23 21:11 | disposition home or self-care (01) ==
PROVIDERS: Physician Assistant; Emergency Provider Physician Assistant; PCP Psychiatry & Neurology Neurology
DX: N30.00 Acute cystitis without hematuria (principal); G35 Multiple sclerosis; M81.0 Age-related osteoporosis without current pathological fracture; N32.81 Overactive bladder
CPT/HCPCS: 36415; 70450; 80053; 81001; 83690; 85025; 87077; 87086; 87186; 96365; 99284; J0696

== ENCOUNTER 2025-08-29 04:15 | Emergency (ER) | payer MEDICARE, OTHER, SELFPAY ==
--- NOTE | 2025-08-29 04:24 | ED_ITS ---
HPI - Female Genitourinary General Chief complaint: Urogenital-Female Stated complaint: uti Time Seen by Provider: 08/29/25 04:19 History of Present Illness HPI Narrative: 69-year-old female with a history of progressive multiple sclerosis as well as recurrent urinary tract infections. Patient presents to the ED for concerns of recurrent UTI. Patient had a recent UTI several months ago treated with antibiotics. She saw her neurologist earlier last month and he recommended having a urologist follow-up appointment to discuss potential chronic antibiosis and UTI prevention medications but nothing was started at that time. Patient's family states that they have not made an appointment for urology yet. Patient was otherwise in her normal state of health. No fever, chills, abdominal complaints. Patient states she feels okay at this time but states she has a UTI. provides the majority of her care and is very supportive. States that he knows when she has urinary tract infections and is acting like she has one today. No new MS symptoms otherwise. Related Data Allergies Allergy/AdvReac Type Severity Reaction Status Date / Time No Known Allergies Allergy Verified 08/05/25 10:04 Review of Systems Review of Systems: As reviewed above in HPI All systems reviewed & are unremarkable except as noted in HPI and below PMFSH Past Medical History Medical History Recurrent UTI Carotid bruit present History of vaginal delivery Overactive bladder Osteoporosis Multiple sclerosis Surgical History Surgical History S/P LASIK surgery (~2013) History of appendectomy Family History Family History Father Acute myocardial infarction Other Hypertension Social History Social History Smoking status: Never smoker Alcohol intake: never Substance use: never Substance use type: does not use Do You Feel Safe in your Home?: Yes Lack of Transportation: No Lack of Food: Never True Current Housing: Decline to Answer Concerned About Future Housing: No Difficulty Paying Gas/Electric Bills: No Difficulty Paying for Meds: No Currently Unemployed: No Education: High School Diploma/GED Difficulty w/ Childcare or Family Care: No Living arrangements: with family Exam Narrative: GENERAL: Chronic contractures, awake alert oriented. Answering questions appropriately. Wheelchair-bound. HEAD: [Normocephalic, atraumatic.] EYES: [PERRLA and EOMI.] ENT: Nares clear, no rhinorrhea or epistaxis. Mucous membranes moist. NECK: Supple. CHEST: [Clear to auscultation. No respiratory distress.] HEART: [Regular rate and rhythm]. No murmur heard. [Normal peripheral pulses.] ABDOMEN: [Soft, nondistended], [nontender], [No rigidity or guarding] EXTREMITIES: Normal range of motion. [No edema.] SKIN: Warm, dry, no rash. NEURO: No new focal deficits. Alert x3. Answering questions appropriately. PSYCH: [Normal mood and affect.] Course Vital Signs Vital signs: Vital Signs Temperature 36.3 C L 08/29/25 04:44 Pulse Rate 68 08/29/25 04:44 Respiratory Rate 22 H 08/29/25 04:44 Blood Pressure 177/100 H 08/29/25 04:44 Pulse Oximetry 96 08/29/25 04:44 Oxygen Delivery Room Air 08/29/25 04:44 Temperature 36.3 C L 08/29/25 04:44 Pulse Rate 89 08/29/25 05:42 Respiratory Rate 20 08/29/25 05:42 Blood Pressure 160/94 H 08/29/25 05:42 Pulse Oximetry 98 08/29/25 05:42 Oxygen Delivery Room Air 08/29/25 04:49 MDM - Female Genitourinary MDM Narrative Medical decision making narrative: 69-year-old female with a history of progressive multiple sclerosis as well as recurrent urinary tract infections. Patient presents to the ED for concerns of recurrent UTI. Patient had a recent UTI several months ago treated with antibiotics. She saw her neurologist earlier last month and he recommended having a urologist follow-up appointment to discuss potential chronic antibiosis and UTI prevention medications but nothing was started at that time. Patient's family states that they have not made an appointment for urology yet. Patient was otherwise in her normal state of health. No fever, chills, abdominal complaints. Patient states she feels okay at this time but states she has a UTI. provides the majority of her care and is very supportive. States that he knows when she has urinary tract infections and is acting like she has one today. No new MS symptoms otherwise. Patient is otherwise well-appearing and not in any acute distress. Given patient family concerns for urinary infection a urinalysis with straight catheterization was ordered. Urine culture results were reviewed from previous studies and had some resistance is to something like Bactrim but mostly pansensitive. Will assess for UTI and treat appropriately and have her follow- up with urologist for further care. Urinalysis shows evidence of UTI. Previous culture susceptible to Macrobid so she was given 1st dose here and prescription for 7 days sent. Refer to urology for outpatient evaluation. patient re-evaluated and doing well without any concerns. Discussed with the family members and plan for outpatient evaluation with Urology and antibiotics sent to the pharmacy. Safe for discharge. Discussed return precautions with patient and family. Medical Records Attestation: I reviewed the patient's medical records. Lab Data Attestation: I reviewed the patient's lab results. Labs: Lab Results 08/29/25 Range/Units 04:42 Urine Color Yellow (Yellow) Urine Appearance Turbid H (Clear) Urine pH 6.5 (5.0-9.0) Ur Specific [place] 1.009 (1.001-1.035) Urine Protein 1+ H (Negative) mg/dL Urine Glucose (UA) Negative (Negative) mg/dL Urine Ketones Negative (Negative) mg/dL Ur Blood (Man) 2+ H (Negative) Urine Nitrate Positive H (Negative) Urine Bilirubin Negative (Negative) Urine Urobilinogen 1.0 (<2.0) mg/dL Add Ur Microanalysis Reviewed Leukocyte Esterase Rfl 3+ H (Negative) SARAH/UL Urine RBC 11-20 H (0-2) /hpf Urine WBC >100 H (0-3) /hpf Urine WBC Clumps Present H (None) /HPF Ur Squamous Epith Cells Moderate (Few) /hpf Urine Bacteria 4+ /hpf Urine Casts >20 Urine Mucus Present /lpf Discharge Plan Discharge Clinical Impression: Urinary tract infection, Multiple sclerosis, Recurrent UTI Patient Disposition: Home Condition: Stable Instructions: Antibiotic Form, Urinary Tract Infection in Women (ED) Additional Instructions: We have evidence of a urinary tract infection today so we will treat this with antibiotics twice daily for the next 7 days. Please call the provided urologist for close follow-up visit to discuss potentially being on antibiotics daily for preventative care and also to evaluate you for the recurrent urinary tract infections. Return with any emergent concerns or worsening symptoms at any magui e. Follow-up with regular care providers outpatient. Patient Language: Vietnamese Prescriptions: New nitrofurantoin monohyd/m-cryst [Macrobid] 100 mg capsule 100 mg PO Q12H 7 Days Qty: 14 0RF Rx Instructions: must administer with a meal/food No Action baclofen 10 mg tablet See Rx Instructions .ROUTE .COMPLEX Qty: 210 12RF Dose Instruction: TAKE 1 TABLET BY MOUTH 7 TIMES A DAY Rx Instructions: TAKE 1 TABLET BY MOUTH 7 TIMES A DAY fluoxetine 20 mg capsule See Rx Instructions .ROUTE .COMPLEX Qty: 90 4RF Dose Instruction: TAKE 1 CAPSULE BY MOUTH DAILY Rx Instructions: TAKE 1 CAPSULE BY MOUTH DAILY cephalexin 500 mg capsule 500 mg PO Q6H 7 Days Qty: 28 0RF oxybutynin chloride 15 mg tablet extended release 24hr See Rx Instructions .ROUTE .COMPLEX Qty: 90 5RF Dose Instruction: TAKE 1 TABLET BY MOUTH EVERY DAY Rx Instructions: TAKE 1 TABLET BY MOUTH EVERY DAY Follow-up/Referrals: Kvng Mcgarry MD [Physician, Urology] - 1 Week Referral Note: Recurrent UTI UNKNOWN,DOCTOR [Non-Staff] Time of Disposition: 05:31
--- OUTSIDE RECORDS SUMMARY | 2025-08-29 04:27 | XMS_ITS | Encounter Summary ---
Author Organization [facility] Healthcare Address [address] [place] [address] Care Team Providers Care Machine Repairer Name Role Phone Wing Horton MD Primary Care Provider [phone] Unknown, Notinfile Primary Care Provider Unavail able Encounter Details Date Type Department Care Team (Late st Contact Info) Description 12/24/2017 Orders Only [facility] Health Information Management [address] [place] [id number] Scanning, Provider Social History Tobacco Use Types Packs/Day Years Used Date Smoking Tobacco: Never Comments Unknown Sex and Gender Information Value Date Recorded Sex Assigned at Not on file Legal Sex Female 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 Gender Identity Not on file Sexual Orientation Not on file documented as of this encounter Plan of Treatment Not on file documented as of this encounter Procedures Procedure Name Priority Date/Time Associated Diagnosis Comments CARDIOLOGY DOCUMENT SCAN 12/24/2017 documented in this encounter Results * Cardiology Document Scan (12/24/2017) Anatomical Region Laterality Modality Other Provider Scanning CV CARDIAC SERVICES PROCEDURES Final Result documented in this encounter Visit Diagnoses Not on filedocumented in this encounter Care Teams Machine Repairer Relationship Specialty Start Date End Date Wing Horton MD [address] [place] [address] PCP - General Family Medicine 10/08/17 12/28/24 Unknown, Cheo PCP - General 12/29/24 documented as of this encounter
[2025-08-29 04:44] VITALS: BP 177/100; PULSE 68; RESP 22; TEMP 36.3; O2SAT 96
[2025-08-29 05:06] LABS: Add Urine Microscopic? YES; Appearance Urine Turbid (Clear); Glucose Urine UA Negative (Negative); Leukocyte Esterase Ur 3+ LEU/UL (Negative); Need Manual Microscopic Reviewed; Nitrate Urine Positive (Negative); Non Pathogenic Casts >20; Specific Grav Ur 1.009 (1.001-1.035)
[2025-08-29] MEDS: NITROFURANTOIN MONOHYD MACROCR 100 MG CAP PO (05:31)
[2025-08-29 05:42] VITALS: BP 160/94; PULSE 89; RESP 20; O2SAT 98
== END 2025-08-29 05:44 | disposition home or self-care (01) ==
PROVIDERS: Emergency Provider Student in an Organized Health Care Education/Training Program
DX: N39.0 Urinary tract infection, site not specified (principal); G35.B0 Primary progressive multiple sclerosis, unspecified; M81.0 Age-related osteoporosis without current pathological fracture; N32.81 Overactive bladder
CPT/HCPCS: 81001; 99283; A9270